=== PATIENT | male | born 1990 | race African-American/Black ===

== ENCOUNTER 2018-05-17 12:47 | Emergency (ER) | payer SELFPAY ==
[~2018-05-17] VITALS: Ht 182.9 cm; Wt 72.6 kg
[2018-05-17 13:13] VITALS: BP 132/74
[2018-05-17] MEDS ORDERED: HYDR-3164 PO (13:28)
[2018-05-17] MEDS ORDERED: IBUP-1007 PO (13:28)
--- NOTE | 2018-05-17 13:28 | PHYS DOC ---
Past Medical History Past Medical History: No Pertinent History Past Surgical History: No Surgical History Alcohol Use: Occasionally Drug Use: Marijuana Adult General Chief Complaint Chief Complaint: OTHER COMPLAINTS HPI HPI Patient is a 27 year old male who presents with patient has 2 he rates her red bumps to his left axillary into her exercise red bumps to his right axillary for last 4 days. Patient states they've been having fever and 101 since Tuesday but there is no fever today. He has not taken any Tylenol today. Patient states is tender in hurts especially with movement. She rates pain an 8- 9 out of 10. Review of Systems Review of Systems Constitutional: Denies fever or chills [] Eyes: Denies change in visual acuity, redness, or eye pain [] HENT: Denies nasal congestion or sore throat [] Respiratory: Denies cough or shortness of breath [] Cardiovascular: No additional information not addressed in HPI [] GI: Denies abdominal pain, nausea, vomiting, bloody stools or diarrhea [] : Denies dysuria or hematuria [] Musculoskeletal: Denies back pain or joint pain [] Integument: 2 pencil eraser sized red hard abscesses to the right and left axillary. Denies rash or skin lesions [] Neurologic: Denies headache, focal weakness or sensory changes [] Endocrine: Denies polyuria or polydipsia [] All other systems were reviewed and found to be within normal limits, except as documented in this note. Current Medications Current Medications Current Medications Medications (Trade) Dose Ordered Sig/Maldon[place] Start Time Stop Time Status Last Admin Dose Admin Acetaminophen/ Hydrocodone Bitart (Lortab 5/325) 1 tab 1X ONCE 05/17/18 13:30 05/17/18 13:31 DC 05/17/18 13:37 1 TAB Ibuprofen (Motrin) 600 mg 1X ONCE 05/17/18 13:30 05/17/18 13:31 DC 05/17/18 13:36 600 MG Allergies Allergies Allergies Coded Allergies Type Severity Reaction Last Updated Verified No Known Drug Allergies 02/15/15 No Physical Exam Physical Exam Constitutional: Well developed, well nourished, no acute distress, non-toxic appearance. [] HENT: Normocephalic, atraumatic, bilateral external ears normal, oropharynx moist, no oral exudates, nose normal. [] Eyes: PERRLA, EOMI, conjunctiva normal, no discharge. [] Neck: Normal range of motion, no tenderness, supple, no stridor. [] Cardiovascular:Heart rate regular rhythm, no murmur [] Lungs & Thorax: Bilateral breath sounds clear to auscultation [] Abdomen: Bowel sounds normal, soft, no tenderness, no masses, no pulsatile masses. [] Skin: Two, hard, red pencil eraser sized abscesses to bilateral axillaries. Non- draining. No red streaking or cellulitis. Warm, dry, no erythema, no rash. [] Back: No tenderness, no CVA tenderness. [] Extremities: No tenderness, no cyanosis, no clubbing, ROM intact, no edema. [] Neurologic: Alert and oriented X 3, normal motor function, normal sensory function, no focal deficits noted. [] Psychologic: Affect normal, judgement normal, mood normal. [] Current Patient Data Vital Signs Vital Signs Date Time Temp Pulse Resp B/P (MAP) Pulse Ox O2 Delivery O2 Flow Rate FiO2 05/17/18 13:37 16 99 Room Air 05/17/18 13:13 98.4 68 132/74 (93) 98.4 EKG EKG [] Radiology/Procedures Radiology/Procedures [] Course & Med Decision Making Course & Med Decision Making Patient is a 27 year old male who presents with patient has 2 he rates her red bumps to his left axillary into her exercise red bumps to his right axillary for last 4 days. Patient states they've been having fever and 101 since Tuesday but there is no fever today. He has not taken any Tylenol today. Patient states is tender in hurts especially with movement. Patient rates pain an 8-9 out of 10. Alert And oriented. Skin pink warm and dry. Afebrile. The small red abscesses are hard and non-draining. Patient given antibiotic Keflex and is told to return to the ED in 48 hours for recheck to make sure they are getting better. Patient is told also use a warm pack on the small abscesses. Patient is stable and in no distress. Balbina SARMIENTO tried calling the patient because his Keflex prescription is still here in the ED and he needs the prescription for his abscesses. The phone number that is on file is disconnected. I have given the prescription to the hot dog vender at the front office assistant. [] Dragon Disclaimer Mandie Disclaimer This electronic medical record was generated, in whole or in part, using a voice recognition dictation system. Departure Departure Impression: Primary Impression: Axillary abscess Disposition: 01 HOME, SELF-CARE Condition: STABLE Referrals: NO PCP (PCP) Patient Instructions: Abscess Additional Instructions: Follow-up in the ED in 48 hours for a recheck. Take medications as prescribed. Use warm pack and ibuprofen also. Scripts Cephalexin (KEFLEX) 500 Mg Capsule 500 MG PO QID for 7 Days, #28 CAP Prov: MANFRED CARLSON APRN 05/17/18 Ibuprofen (IBUPROFEN) 600 Mg Tablet 600 MG PO PRN Q6HRS PRN for INFLAMMATION, #20 TAB Prov: MANFRED CARLSON APRN 05/17/18 Hydrocodone/Apap 5-325 (NORCO 5-325 TABLET) 1 Each Tablet 1 TAB PO PRN Q6HRS PRN for PAIN, #6 TAB 0 Refills Prov: MANFRED CARLSON APRN 05/17/18 MANFRED CARLSON APRN May 17, 2018 13:28
[2018-05-17] MEDS ORDERED: HYDROcodone/APAP 5/325MG 1 TAB TABLET PO ONE (13:30)
[2018-05-17] MEDS ORDERED: IBUPROFEN 600 MG TABLET. PO ONE (13:30)
[2018-05-17] MEDS ORDERED: CEPH-264 PO (16:21)
== END 2018-05-17 13:42 | disposition home or self-care (01) ==
LOC: ER 12:47
DX: L02.412 Cutaneous abscess of left axilla (principal); L02.411 Cutaneous abscess of right axilla
CPT/HCPCS: 99283

== ENCOUNTER → 2019-10-29 | Outpatient (CLI) | payer OTHER ==
[~2019-10-29] MED LIST: CEPH-264 PO; HYDR-3164 PO; IBUP-1007 PO
== END | disposition home or self-care (01) ==
LOC: LAB 01:04
PROVIDERS: ATTEND Emergency Medicine
DX: Z02.83 Encounter for blood-alcohol and blood-drug test (principal)
CPT/HCPCS: 36415